=== PATIENT | male | born 1975 | race Caucasian/White ===

== ENCOUNTER 2019-09-26 09:48 | Emergency (ER) | payer OTHER ==
[~2019-09-26] VITALS: Ht 188 cm; Wt 104.5 kg
[2019-09-26] MEDS ORDERED: PREG25 PO (09:55)
[2019-09-26] MEDS ORDERED: ACETAMINOPHEN 500 MG TABLET PO ONE (11:30)
[2019-09-26] MEDS ORDERED: PredniSONE 20 MG TABLET PO ONE (11:30)
[2019-09-26] MEDS ORDERED: KETOROLAC TROMETHAMINE 30 MG/ML VIAL IM ONE (11:30)
[2019-09-26 11:44] VITALS: BP 122/81
== END 2019-09-26 12:23 | disposition home or self-care (01) ==
LOC: EMS 09:54
DX: S39.012A Strain of muscle, fascia and tendon of lower back, initial encounter (principal); M54.16 Radiculopathy, lumbar region; F31.9 Bipolar disorder, unspecified; F12.90 Cannabis use, unspecified, uncomplicated; Z98.890 Other specified postprocedural states; Z79.899 Other long term (current) drug therapy; X50.9XXA Other and unspecified overexertion or strenuous movements or postures, initial encounter; Y93.89 Activity, other specified; Y92.89 Other specified places as the place of occurrence of the external cause; Y99.8 Other external cause status
CPT/HCPCS: 96372; 99283; J1885; J7512

== ENCOUNTER 2022-03-10 08:44 | Emergency (ER) | payer OTHER ==
[~2022-03-10] VITALS: Ht 188 cm; Wt 113.6 kg
[~2022-03-10 08:44] MED LIST: PREG25 PO
[2022-03-10] MEDS ORDERED: CHOL25TA4 PO (08:50)
[2022-03-10 09:30] VITALS: BP 127/78
[2022-03-10] MEDS ORDERED: CLIN-142 PO (11:25)
== END 2022-03-10 11:39 | disposition home or self-care (01) ==
LOC: EMS 08:44
DX: L03.116 Cellulitis of left lower limb (principal); F31.9 Bipolar disorder, unspecified; F12.90 Cannabis use, unspecified, uncomplicated; Z86.69 Personal history of other diseases of the nervous system and sense organs; Z87.39 Personal history of other diseases of the musculoskeletal system and connective tissue
CPT/HCPCS: 99283